=== PATIENT | male | born 1955 | race Caucasian/White ===

== ENCOUNTER 2016-11-01 16:00 | Emergency (ER) | payer OTHER, SELFPAY ==
--- NOTE | 2016-11-01 16:41 | RAD ---
CHEST PA AND LATERAL: 11/01/16 HISTORY: 61-year-old male with dyspnea. COMPARISON: 10/22/13. FINDINGS: There is bilateral vascular congestion with minimal interstitial edema and bilateral pleural effusio ns with at least borderline cardiomegaly. Evidence for a hiatal hernia. No confluent pneumonia. IMPRESSION: Evidence for congestive heart failure with vascular congestion, mild interstitial edema changes and pleural effusions and at least borderline cardiomegaly. Small hiatal hernia. Short term followup to evaluate for resolution or stability. POS: OFF
[2016-11-01 17:04] LABS: ALT (SGPT) 12 U/L (8-55); AST (SGOT) 15 U/L (5-34); Albumin 3.2 g/dL (3.5-5.0); Alcohol Less than 10 mg/dL (Less than 10); Alkaline Phosphatase 86 U/L (40-150); Anion Gap 13 mmol/L (10-20); BUN (Urea Nitrogen) 10 mg/dL (8.4-25.7); Bilirubin, Total Less than 0.3 mg/dL (0.2-1.2); CK (CPK) 69 U/L (30-200); Calc. Creatinine Clearance 0 mL/min (70-130); Calcium 8.2 mg/dL (7.8-10.44); Carbon Dioxide 19 mmol/L (22-29); Chloride 112 mmol/L (98-107); Estimated GFR-MDRD Greater than 90; Globulin 2.8 g/dL (2.4-3.5); Glucose 100 mg/dL (70-105); Potassium 4.3 mmol/L (3.5-5.1); Sodium 140 mmol/L (136-145)
[2016-11-01 17:05] LABS: #Basophils 0.1 thou/uL (0.0-0.2); #Eosinphils 0.7 thou/uL (0.0-0.7); #Lymphocytes 1.6 thou/uL (1.20-3.40); #Monocytes 0.7 thou/uL (0.11-0.59); #Neutrophils 4.6 thou/uL (1.40-6.50); %Basophils 1.1 % (0.0-1.0); %Eosinophils 9.8 % (0.0-10.0); %Lymphocytes 19.9 % (21.0-51.0); %Monocytes 9.1 % (0.0-10.0); Anisocytosis MARKED = >30 cells (100X) (0-5/hpf); Hemoglobin 4.2 g/dL (14.0-18.0); Hypochromia MARKED = >30 cells (100X) (0-5/hpf); MDiff Complete? YES; Mean Corpuscular HGB CONC 28.2 g/dL (32.0-36.0); Mean Corpuscular Hemoglobin 19.8 pg (27.0-31.0); Mean Corpuscular Volume 70.2 fl (80.0-94.0); Mean Platelet Volume 7.2 fL (7.4-10.4); Microcytosis MARKED = >30 cells (100X) (0-5/hpf); Platelet Count 569 thou/uL (130-400); Poikilocytosis SLIGHT = 6-15 cells (100X) (0-5/hpf); RBC Distribution Width 21.4 % (11.5-14.5); Red Blood Cell (RBC) Count 2.11 mill/uL (4.70-6.10); White Blood Cell (WBC) Count 7.7 thou/uL (4.8-10.8)
[2016-11-01 17:06] LABS: CKMB 1.4 ng/mL (0-6.6); Troponin I 0.023 ng/mL (< 0.028)
== END 2016-11-01 18:07 | disposition short-term general hospital (02) ==
LOC: MADERS 16:00
DX: R60.0 Localized edema (principal); D64.9 Anemia, unspecified
CPT/HCPCS: 36415; 71020; 80053; 80307; 82274; 82553; 83880; 84484; 85025; 93005